=== PATIENT | male | born 1980 | race Caucasian/White ===

== ENCOUNTER 2017-08-04 13:39 | Emergency (ER) | payer SELFPAY ==
[2017-08-04] MEDS ORDERED: Ketorolac INJ* 30 MG/ML 1 ML VIAL IM ONE (16:38)
--- NOTE | 2017-08-04 18:00 | RAD ---
Indication: RIGHT side rib pain post fall. Comparison: No relevant prior exams available on the [facility] PACS for comparison. Technique: Dual energy PA chest and 4 view RIGHT unilateral rib series. Report: Clear lungs and LEFT pleural space. Trace RIGHT pleural effusion. Negative for pneumothorax. The heart, pulmonary vasculature, and mediastinal contours are unremarkable. Nondisplaced fractures of the RIGHT fourth ribs laterally. IMPRESSION: Nondisplaced fractures of the RIGHT fourth and fifth ribs laterally with trace associated RIGHT pleural effusion. Negative for pneumothorax.
[2017-08-04 18:22] VITALS: BP 133/71
--- NOTE | 2017-08-22 08:31 | ED ---
Back Pain - HPI Summary HPI Summary: Patient presents to the ED with CC of right rib pain after falling into a sharp object. He notes to 8/10 pain, constant and throbbing. He has taken ibuprofen with relief. Denies other symptoms at this time. 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 He is otherwise healthy. Denies medication use. - History of Current Complaint Chief Complaint: EDChestWallPain Stated Complaint: FALL-RIB PAIN Time Seen by Provider: 08/04/17 14:07 Hx Obtained From: Patient Onset/Duration: Sudden Onset Onset/Duration: Started Hours Ago Timing: Constant Back Pain Location: Is Discrete @ - right rib pain Severity Initially: Moderate Severity Currently: Moderate Pain Intensity: 4 Pain Scale Used: 0-10 Numeric Character: Aching Alleviating Symptom(s): Rest, Position Associated Signs And Symptoms: Positive: Negative - Risk Factors AAA Risk Factors: Negative TAD Risk Factors: Negative Cauda Equina Risk Factors: Negative Epidural Abscess Risk Factors: Negative - Allergies/Home Medications Allergies/Adverse Reactions: Allergies Allergy/AdvReac Type Severity Reaction Status Date / Time No Known Allergies Allergy Verified 05/23/15 12:08 PMH/Surg Hx/FS Hx/Imm Hx Previously Healthy: Yes Endocrine/Hematology History: Denies: Hx Diabetes, Hx Systemic Lupus Erythematosus Cardiovascular History: Denies: Hx Congestive Heart Failure, Hx Hypertension History: Denies: Hx Dialysis, Hx Renal Disease Musculoskeletal History: Denies: Hx Rheumatoid Arthritis - Cancer History Hx Chemotherapy: No - Immunization History Date of Tetanus Vaccine: Unknown Date of Influenza Vaccine: None Hx Pertussis Vaccination: No Immunizations Up to Date: Unable to Obtain/Confirm Infectious Disease History: No Infectious Disease History: Denies: Traveled Outside the [place] in Last 30 Days - Family History Known Family History: Positive: Other - EtOH and drug addicion; leukemia - Social History Occupation: Employed Full-time Lives: With Family Alcohol Use: Occasionally Hx Substance Use: Yes - recovering addict (heroin, opiates) last use 3.5 months Substance Use Type: Reports: None Smoking Status (MU): Light Every Day Tobacco Smoker Review of Systems Constitutional: Negative ENT: Negative Cardiovascular: Negative Gastrointestinal: Negative Genitourinary: Negative Positive: no symptoms reported, see HPI Positive: Arthralgia - right rib pain Skin: Negative Neurological: Negative Psychological: Normal All Other Systems Reviewed And Are Negative: Yes Physical Exam Triage Information Reviewed: Yes Vital Signs On Initial Exam: Initial Vitals Temp Pulse Resp BP Pulse Ox 98.6 F 68 18 139/94 98 08/04/17 13:45 08/04/17 13:45 08/04/17 13:45 08/04/17 13:45 08/04/17 13:45 Vital Signs Reviewed: Yes Appearance: Positive: Well-Appearing, Well-Nourished Skin: Positive: Warm, Skin Color Reflects Adequate Perfusion Head/Face: Positive: Normal Head/Face Inspection Eyes: Positive: EOMI, SHYANN, Conjunctiva Clear Neck: Positive: Supple, No Lymphadenopathy Respiratory/Lung Sounds: Positive: Clear to Auscultation, Breath Sounds Present Cardiovascular: Positive: Normal, RRR, Pulses are Symmetrical in both Upper and Lower Extremities Musculoskeletal: Positive: Pain @ - rigth rib pain Neurological: Positive: Sensory/Motor Intact, Alert, Oriented to Person Place, Time, Speech Normal Psychiatric: Positive: Normal AVPU Assessment: Alert Diagnostics - Vital Signs Vital Signs Temp Pulse Resp BP Pulse Ox 08/04/17 18:21 98.5 F 67 18 133/71 08/04/17 13:45 98.6 F 68 18 139/94 98 - Laboratory Lab Statement: Any lab studies that have been ordered have been reviewed, and results considered in the medical decision making process. Back Pain Course/Dx - Course Course Of Treatment: Right fourth and fifth ribs nondisplaced fracture. Patient given diclofenac 50mg three times daily. Given incentive spirometry and return precautions. Given care instructions. He is Ok with discharge. - Diagnoses Differential Diagnosis/HQI/PQRI: Positive: Herniated Disc, Strain, Sprain Provider Diagnoses: Right rib fracture Discharge - Discharge Plan Condition: Stable Disposition: HOME Prescriptions: Diclofenac Sodium EC TAB* [Voltaren EC TAB*] 50 mg PO TID PRN #20 tab.ec PRN Reason: Pain Patient Education Materials: How to Use an Incentive Spirometer (ED), Rib Fracture (ED) Forms: *Work Release Referrals: Mike Machuca MD [Medical Doctor] - No Primary Care Phys,NOPCP [Primary Care Provider] - Additional Instructions: Return if symptoms worsen, new symptoms develop, or do not improve. Follow up with primary care provider. Apply pillow when sleeping for extra cushion. Avoid strenuous physical activity. Rest and ice area. Call and make an appointment with Ortho to ensure proper improvement and repeat imaging. Spirometry up to 10 times per day as instructed.
== END 2017-08-04 18:21 | disposition home or self-care (01) ==
LOC: ED 13:39
DX: S22.41XA Multiple fractures of ribs, right side, initial encounter for closed fracture (principal); W01.198A Fall on same level from slipping, tripping and stumbling with subsequent striking against other object, initial encounter; Y92.9 Unspecified place or not applicable; F17.200 Nicotine dependence, unspecified, uncomplicated
CPT/HCPCS: J1885

== ENCOUNTER 2019-08-12 19:08 | Emergency (ER) | payer SELFPAY ==
[2019-08-12] MEDS ORDERED: NS 0.9% 1000 ML** 1,000 ML IV ONE ×2 (19:33→20:54)
[2019-08-12 20:03] LABS: ABS Basophils 0.1 10^3/ul (0-0.2); ABS Eosinophils 0.2 10^3/ul (0-0.6); ABS Lymphocytes 2.7 10^3/ul (1.0-4.8); ABS Monocytes 0.8 10^3/ul (0-0.8); ABS Neutrophils 4.3 10^3/ul (1.5-7.7); Eosinophil % 2.7 %; Hematocrit 42 % (42-52); Hemoglobin 14.7 g/dL (14.0-18.0); Lymphocyte % 33.5 %; Mean Corpuscular HGB Conc 35 g/dL (31-36); Mean Corpuscular Hemoglobin 32 pg (27-31); Mean Corpuscular Volume 91 fL (80-94); Mean Platelet Volume 7.3 fL (7.4-10.4); Platelet Count 298 10^3/uL (150-450); Red Blood Count 4.63 10^6 /uL (4.18-5.48); Red Cell Distribution Width 14 % (10-15); White Blood Count 8.1 10^3/uL (3.5-10.8)
--- NOTE | 2019-08-12 20:03 | ED ---
Substance Abuse/Use - HPI Summary HPI Summary: Patient is a 38 y/o M presenting to [facility] via EMS for evaluation of AMS. 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 EMS called & pt brought here. Pt slightly combative en route. Pt cooperative here upon arrival" . In the room, patient is unable to provide history. When questioned, he only responds with moans. History could not be obtained, level 5 caveat due to AMS. - History Of Current Complaint Chief Complaint: EDSubstanceAbuse Stated Complaint: 2208 PER EMS Time Seen by Provider: 08/12/19 19:33 Hx Obtained From: EMS Hx From Patient Unobtainable Due To: Altered Mental Status Associated Signs And Symptoms: Other: - AMS - Allergies/Home Medications Allergies/Adverse Reactions: Allergies Allergy/AdvReac Type Severity Reaction Status Date / Time No Known Allergies Allergy Verified 08/12/19 19:33 PMH/Surg Hx/FS Hx/Imm Hx Previously Healthy: Yes Endocrine/Hematology History: Denies: Hx Diabetes, Hx Systemic Lupus Erythematosus Cardiovascular History: Denies: Hx Congestive Heart Failure, Hx Hypertension Respiratory History: Reports: Hx Asthma, Hx Seasonal Allergies Denies: Hx Chronic Obstructive Pulmonary Disease (COPD) History: Denies: Hx Dialysis, Hx Renal Disease Musculoskeletal History: Denies: Hx Rheumatoid Arthritis - Cancer History Hx Chemotherapy: No - Immunization History Date of Tetanus Vaccine: Unknown Date of Influenza Vaccine: None Infectious Disease History: No Infectious Disease History: Denies: Traveled Outside the [place] in Last 30 Days - Family History Known Family History: Positive: Other - EtOH and drug addicion; leukemia - Social History Alcohol Use: Occasionally Hx Substance Use: Yes - recovering addict (opiates) last use 3.5 months; heroin (2017) Substance Use Type: Reports: Marijuana Hx Tobacco Use: Yes Smoking Status (MU): Light Every Day Tobacco Smoker Review of Systems - ROS Summary Review of Systems Summary: ROS could not be obtained due to LEVEL 5 CAVEAT. Neurological: Other - positive - AMS All Other Systems Reviewed And Are Negative: No Physical Exam - Summary Physical Exam Summary: LEVEL 5 CAVEAT General: Well-developed, Well-nourished MALE. No acute distress. Lethargic, disheveled. HEENT: Normocephalic, Atraumatic. Eyes: Conjuctiva normal, PERRL. Ears: TMs within normal limits. Nares: (-) discharge, (-) erythema. Oropharynx: Clear, mucous membranes moist, (-) exudates. Neck: Soft, FROM, (-) lymphadenopathy, (-) thyromegaly, (-) JVD. Cardiovascular: Normal sinus rhythm, (-) murmur. Lungs: Clear to auscultation bilaterally (-) wheezes, (-) rales, (-) rhonchi. Abdomen: Soft, non-tender, non-distended, (-) organomegaly, normal bowel sounds. Back: (-) CVA tenderness Extremities: No edema. Skin: Warm, dry, (-) rash. Neuro: Lethargic, patient is a level 5 caveat, AMS Psychiatric: Mood normal, affect normal. Triage Information Reviewed: Yes Vital Signs On Initial Exam: Initial Vitals Temp Pulse Resp BP Pulse Ox 97.1 F 63 16 92/56 93 08/12/19 19:13 08/12/19 19:13 08/12/19 19:13 08/12/19 19:13 08/12/19 19:13 Vital Signs Reviewed: Yes Completion Of Physical Exam Limited Due To: Altered Mental Status, Level 5 Diagnostics - Vital Signs Vital Signs Temp Pulse Resp BP Pulse Ox 08/12/19 19:13 97.1 F 63 16 92/56 93 - Laboratory Result Diagrams: 08/12/19 19:47 08/12/19 19:47 Lab Statement: Any lab studies that have been ordered have been reviewed, and results considered in the medical decision making process. - EKG 19:47 Cardiac Rate: NL - 60 BPM EKG Rhythm: Sinus Rhythm ST Segment: Normal Ectopy: None Summary of EKG Findings: EKG at 19:48 reveals normal sinus rhythm with rate of 60 BPM, no acute changes, no ischemic changes, no STEMI. This EKG was reviewed and interpreted by Dr. Patel. Re-Evaluation - Re-Evaluation 1st re-eval Re-Evaluation Time: 21:15 Comment: Patient is noted to have low blood sugar and potassium, given dextrose and K-run. Second Eval Re-Evaluation Time: 01:58 Change: Improved Comment: Re-eval at 01:58, pt is talking and walking normally, has eaten 2 sandwiches. Course/Dx - Course Course Of Treatment: Patient is a 38 y/o M presenting to [facility] via EMS for evaluation of AMS. 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 EMS called & pt brought here. Pt slightly combative en route. Pt cooperative here upon arrival". In the room, patient is unable to provide history. When questioned, he only responds with moans. History could not be obtained, level 5 caveat due to AMS. On exam, pt appeared lethargic and disheveled; otherwise, normal. EKG at 19:48 reveals normal sinus rhythm with rate of 60 BPM, no acute changes, no ischemic changes, no STEMI. This EKG was reviewed and interpreted by Dr. Patel. Laboratory reports show abnormal serum alcohol of 259, urine glucose of 1+ , urine cannabinoids screen of presumptive positive, potassium of 3.1, MCH 32, MPV 7.3, POC glucose 68, urine specific gravity 1.003, and urine blood 2+. Pt was given fluids, K run, dextrose. Re- eval at 01:58, pt is talking and walking normally, has eaten 2 sandwiches. Pt will be discharged with a diagnosis of acute alcohol intoxication, hypoglycemia , and will be given education regarding alcohol intoxication. - Diagnoses Provider Diagnoses: Acute alcohol intoxication, Hypoglycemia Discharge ED - Sign-Out/Discharge Documenting (check all that apply): Patient Departure - Discharged Patient Received Moderate/Deep Sedation with Procedure: No - Discharge Plan Condition: Stable Disposition: HOME Patient Education Materials: Alcohol Intoxication (ED) Referrals: [facility] [Outside] Additional Instructions: Please follow up with primary care provider within 3 days. Return to ED for any new or worsening symptoms. - Billing Disposition and Condition Condition: STABLE Disposition: Home - Attestation Statements Document Initiated by Scribe: Yes Documenting Scribe: Gopal Calderón Provider For Whom Pedro is Documenting (Include Credential): Carola Patel MD. Scribe Attestation: Gopal Dutton scribed for Carola Patel MD. on 08/13/19 at 0632. Scribe Documentation Reviewed: Yes Provider Attestation: The documentation as recorded by the scribeGopal accurately reflects the service I personally performed and the decisions made by me, Carola Patel MD. Status of Scribe Document: Viewed
[2019-08-12 20:26] LABS: ALT 9 U/L (7-52); AST 16 U/L (13-39); Albumin 4.3 g/dL (3.2-5.2); Albumin/Globulin Ratio 1.9 (1-3); Alkaline Phosphatase 55 U/L (34-104); Anion Gap 9 mmol/L (2-11); Blood Urea Nitrogen 12 mg/dL (6-24); CO2 Carbon Dioxide 26 mmol/L (22-32); Calcium 8.7 mg/dL (8.6-10.3); Chloride 103 mmol/L (101-111); EGFR Non-African American 116.6 (>60); Globulin 2.3 g/dL (2-4); Glucose 76 mg/dL (70-100); Potassium 3.1 mmol/L (3.5-5.0); Sodium 138 mmol/L (135-145); Total Protein 6.6 g/dL (6.4-8.9)
[2019-08-12] MEDS ORDERED: Dextrose 50% VIAL 50 ml IV ONE (20:30)
[2019-08-12 20:37] LABS: Acetaminophen < 15 mcg/mL; Alcohol 259 mg/dL (<10); Salicylate < 2.50 mg/dL (<30)
[2019-08-12 20:52] LABS: TSH (Thyroid Stimulating Horm) 1.98 mcIU/mL (0.34-5.60)
[2019-08-12 21:14] LABS: Urine Appearance Clear; Urine Bacteria Absent (Absent); Urine Bilirubin Negative (Negative); Urine Blood 2+ (Negative); Urine Color Straw; Urine Glucose 1+(50 mg/dL) (Negative); Urine Ketones Negative (Negative); Urine Nitrite Negative (Negative); Urine Protein Negative (Negative); Urine Red Blood Cell Absent (Absent); Urine Specific Gravity 1.003 (1.010-1.030); Urine Urobilinogen Negative (Negative); Urine White Blood Cell Absent (Absent)
[2019-08-12] MEDS ORDERED: KCL 10 MEQ/50 ML IVPREMIX* 10 MEQ/50 ML BAG IV ONE (21:14)
[2019-08-12 21:24] LABS: Urine Benzodiazepine Screen None Detected (None Detect); Urine Opiates Screen None Detected (None Detect)
[2019-08-12] MEDS ORDERED: Dextrose 50% Syringe 50 ML* 25 GM/50 ML SYRINGE IV PUSH ONE (22:00)
[2019-08-12] MEDS: D5NS 0.9% 1000 ML BAG* 1,000 ML IV SCH (22:54)
[2019-08-12] MEDS ORDERED: Dextrose 50% VIAL 50 ml IV PUSH ONE (23:00)
[2019-08-13] MEDS ORDERED: D5NS 0.9% 1000 ML BAG* 1,000 ML IV SCH (01:00)
[2019-08-13] MEDS: D5NS 0.9% 1000 ML BAG* 1,000 ML IV SCH (01:08)
[2019-08-13] MEDS ORDERED: Ibuprofen TAB* 800 MG PO PRN (02:11)
[2019-08-13 02:38] VITALS: BP 104/52
== END 2019-08-13 02:30 | disposition home or self-care (01) ==
LOC: ED 19:08
DX: F10.129 Alcohol abuse with intoxication, unspecified (principal); E16.2 Hypoglycemia, unspecified; R41.82 Altered mental status, unspecified; F17.210 Nicotine dependence, cigarettes, uncomplicated
CPT/HCPCS: 36415; 80053; 80307; 80320; 80329; 81003; 81015; 83605; 84443; 84484; 85025; 87040; 93005; 96361; 96365; 96375; 99285; G0480; J3480

== ENCOUNTER 2019-08-28 01:59 | Emergency (ER) | payer SELFPAY ==
--- NOTE | 2019-08-28 02:14 | ED ---
Substance Abuse/Use - HPI Summary HPI Summary: Pt is a 38 y/o M presenting to the ED via EMS for substance use. Pt was found in [facility] and found unconscious by police. Reportedly consumed alcohol possibly marijuana. Patient has been seen in the past for similar. LEVEAL 5 CAVEAT DUE TO INTOXICATION. - History Of Current Complaint Chief Complaint: EDSubstanceAbuse Stated Complaint: 2209 PER EMS Time Seen by Provider: 08/28/19 02:02 Hx From Patient Unobtainable Due To: Altered Mental Status - Allergies/Home Medications Allergies/Adverse Reactions: Allergies Allergy/AdvReac Type Severity Reaction Status Date / Time No Known Allergies Allergy Verified 08/12/19 19:33 PMH/Surg Hx/FS Hx/Imm Hx Previously Healthy: Yes Endocrine/Hematology History: Denies: Hx Diabetes, Hx Systemic Lupus Erythematosus Cardiovascular History: Denies: Hx Congestive Heart Failure, Hx Hypertension Respiratory History: Reports: Hx Asthma, Hx Seasonal Allergies Denies: Hx Chronic Obstructive Pulmonary Disease (COPD) History: Denies: Hx Dialysis, Hx Renal Disease Musculoskeletal History: Denies: Hx Rheumatoid Arthritis - Cancer History Hx Chemotherapy: No - Immunization History Date of Tetanus Vaccine: Unknown Date of Influenza Vaccine: None Infectious Disease History: No Infectious Disease History: Comment Only: Traveled Outside the [place] in Last 30 Days - unknown - Family History Known Family History: Positive: Unknown - Level 5 caveat, Other - EtOH and drug addicion; leukemia , Non-Contributory - Social History Alcohol Use: Occasionally Hx Substance Use: Yes - recovering addict (opiates) last use 3.5 months; heroin (2017) Substance Use Type: Reports: Marijuana Hx Tobacco Use: Yes Smoking Status (MU): Light Every Day Tobacco Smoker Review of Systems - ROS Summary Review of Systems Summary: LEVEL 5 CAVEAT DUE TO INTOXICATION. Negative: Fever - In vitals, 96.8 F Neurological: Other - Not conscious on EMS arrival All Other Systems Reviewed And Are Negative: Yes Physical Exam - Summary Physical Exam Summary: LEVEL 5 CAVEAT DUE TO INTOXICATION. Constitutional: Well-developed, Somnolent, minimally responsive Skin: Warm, Dry HENT: Normocephalic; Atraumatic Eyes: Conjunctiva normal Neck: Musculoskeletal ROM normal neck. (-) JVD, (-) Stridor, (-) Nuchal rigidity Cardio: Rhythm regular, rate normal, Heart sounds normal; Intact distal pulses; Radial pulses are 2+ and symmetric. (-) Murmur Pulmonary/Chest wall: Effort normal. (-) Respiratory distress, (-) Wheezes, (-) Rales Abd: Soft, (-) tenderness, (-) Distension, (-) Guarding, (-) Rebound Musculoskeletal: (-) Edema Lymph: (-) Cervical adenopathy Neuro: Minimal response to painful stimuli, no focal neurologic deficits Psych: Deferred Triage Information Reviewed: Yes Vital Signs On Initial Exam: Initial Vitals Temp Pulse Resp BP Pulse Ox 96.8 F 52 14 95/59 95 08/28/19 02:00 08/28/19 02:00 08/28/19 02:00 08/28/19 02:00 08/28/19 02:00 Vital Signs Reviewed: Yes Procedures - Sedation Patient Received Moderate/Deep Sedation with Procedure: No Diagnostics - Vital Signs Vital Signs Temp Pulse Resp BP Pulse Ox 08/28/19 02:00 96.8 F 52 14 95/59 95 - Laboratory Result Diagrams: 08/28/19 02:10 08/28/19 02:10 Lab Statement: Any lab studies that have been ordered have been reviewed, and results considered in the medical decision making process. Re-Evaluation - Re-Evaluation 1st re-eval Re-Evaluation Time: 06:24 Change: Improved Comment: At 06:24, pt is ambulating. Alert and oriented 3. Patient denies complaints, is requesting his belongings back. Course/Dx - Course Course Of Treatment: 38 y/o male p/w alcohol intoxication. Pt presenting with alcohol intoxication. Medical screening exam does not reveal any emergent conditions. The patient was examined for signs of occult trauma, none of which were found. Will await sobriety - Diagnoses Provider Diagnoses: Alcohol intoxication Discharge ED - Sign-Out/Discharge Documenting (check all that apply): Patient Departure - Discharge - Discharge Plan Condition: Stable Disposition: HOME Patient Education Materials: Alcohol Intoxication (ED) Referrals: [facility] [Outside] Additional Instructions: You were seen in the emergency department for alcohol intoxication. Please don' t drink and drive. It was a pleasure taking care of you today. - Billing Disposition and Condition Condition: STABLE Disposition: Home - Attestation Statements Document Initiated by Scribe: Yes Documenting Scribe: Pooja Akers Provider For Whom Scribe is Documenting (Include Credential): Macrina Baird MD Scribe Attestation: IPooja, scribed for Macrina Baird MD on 09/02/19 at 1120. Scribe Documentation Reviewed: Yes Provider Attestation: The documentation as recorded by the yunioribPooja anaya accurately reflects the service I personally performed and the decisions made by , Macrina Baird MD Status of Scribe Document: Viewed
[2019-08-28 02:19] LABS: ABS Eosinophils 0.3 10^3/ul (0-0.6); ABS Lymphocytes 3.1 10^3/ul (1.0-4.8); ABS Monocytes 0.8 10^3/ul (0-0.8); ABS Neutrophils 5.1 10^3/ul (1.5-7.7); Eosinophil % 3.2 %; Hematocrit 43 % (42-52); Hemoglobin 14.8 g/dL (14.0-18.0); Lymphocyte % 33.2 %; Mean Corpuscular HGB Conc 35 g/dL (31-36); Mean Corpuscular Hemoglobin 32 pg (27-31); Mean Corpuscular Volume 91 fL (80-94); Mean Platelet Volume 7.5 fL (7.4-10.4); Nucleated Red Blood Cells % 0.1; Platelet Count 305 10^3/uL (150-450); Red Blood Count 4.67 10^6 /uL (4.18-5.48); Red Cell Distribution Width 14 % (10-15); White Blood Count 9.3 10^3/uL (3.5-10.8)
[2019-08-28 02:33] LABS: Albumin 4.2 g/dL (3.2-5.2); Albumin/Globulin Ratio 1.8 (1-3); BUN/Creatinine Ratio 19.4 (8-20); Calcium 8.8 mg/dL (8.6-10.3); EGFR African American 175.7 (>60); EGFR Non-African American 145.2 (>60); Globulin 2.3 g/dL (2-4); Potassium 3.4 mmol/L (3.5-5.0); Total Bilirubin 0.4 mg/dL (0.2-1.0); Total Protein 6.5 g/dL (6.4-8.9)
[2019-08-28 06:49] VITALS: BP 109/51
== END 2019-08-28 06:40 | disposition home or self-care (01) ==
LOC: ED 01:59
DX: F10.920 Alcohol use, unspecified with intoxication, uncomplicated (principal); F17.200 Nicotine dependence, unspecified, uncomplicated
CPT/HCPCS: 36415; 80053; 80320; 85025; 99283; G0480